=== PATIENT | male | born 1935 | race Caucasian/White ===

== ENCOUNTER 2017-01-23 10:17 | Emergency (ER) | payer MEDICARE ==
[2017-01-23 10:47] VITALS: BP 135/58
[2017-01-23] MEDS ORDERED: Fluorescein Sodium TOPICAL* 1 MG TEST OPHTHALMIC ONE (11:07)
--- NOTE | 2017-01-23 11:26 | UC ---
Eye Complaint HPI - HPI Summary HPI Summary: 81 yo male with right eye tearing and itching x <18 hours 2-3/10 eye discomfort (feels irritated) no purulent d/c no photophobia hx of a corneal ulcer - History of Current Complaint Chief Complaint: UCEye Stated Complaint: EYE COMPLAINT Time Seen by Provider: 01/23/17 11:03 Onset/Duration: Gradual Onset, Lasting Hours Timing: Constant Severity Initially: Mild Severity Currently: Mild Pain Intensity: 2 Pain Scale Used: 0-10 Numeric Alleviating Factor(s): Nothing Associated Signs And Symptoms: Positive: Drainage (Clear) - Allergies/Home Medications Allergies/Adverse Reactions: Allergies Allergy/AdvReac Type Severity Reaction Status Date / Time horses Allergy itchy eyes Uncoded 11/16/13 16:19 PMH/Surg Hx/FS Hx/Imm Hx Endocrine History: Diabetes, Dyslipidemia Cardiovascular History: Hypertension - Surgical History Surgical History: Yes Surgery Procedure, Year, and Place: 2 BOWEL RESECTIONS R/T LYMPHOMA, CARDIAC BYPASS, bilat cataracts - Family History Known Family History: Positive: Cardiac Disease, Hypertension - Social History Alcohol Use: None Substance Use Type: None Smoking Status (MU): Never Smoked Tobacco Review of Systems Constitutional: Negative Skin: Negative Eyes: Drainage, Eye Redness ENT: Negative Respiratory: Negative Cardiovascular: Negative Gastrointestinal: Negative Genitourinary: Negative Motor: Negative Neurovascular: Negative Musculoskeletal: Negative Neurological: Negative Psychological: Negative Is Patient Immunocompromised?: No All Other Systems Reviewed And Are Negative: Yes Physical Exam Triage Information Reviewed: Yes Appearance: Well-Appearing, No Pain Distress, Well-Nourished Vital Signs: Initial Vital Signs Temp 97.9 F 01/23/17 10:41 Pulse 79 01/23/17 10:41 Resp 18 01/23/17 10:41 BP 135/58 01/23/17 10:41 Pulse Ox 99 01/23/17 10:41 Eyes: Positive: Conjunctiva Inflamed - R also with mild lid edema and erythema, Other: - florescein staining (-) ENT: Positive: Hearing grossly normal. Negative: Nasal congestion, Nasal drainage, Muffled voice, Hoarse voice, Sinus tenderness Neck: Positive: Supple Respiratory: Positive: Lungs clear, Normal breath sounds, No respiratory distress, No accessory muscle use Cardiovascular: Positive: RRR, No Murmur Musculoskeletal: Positive: ROM Intact, No Edema Neurological: Positive: Alert Psychological Exam: Normal Skin Exam: Normal Eye Complaint Course/Dx - Differential Dx/Diagnosis Provider Diagnoses: conjunctivitis (R) Discharge - Discharge Plan Condition: Stable Disposition: HOME Prescriptions: Polymyx/Trimethoprim OPTH* [Polytrim OPHTH*] 1 - 2 drop RIGHT EYE QID #1 btl Patient Education Materials: Conjunctivitis (ED) Referrals: Srini Tinajero MD [Medical Doctor] - 2 Days (if not better) Additional Instructions: I suggest you also try ZADITOR eye drops (over the counter) recheck for new or worsening symptoms or if not improving in a few days
== END 2017-01-23 11:25 | disposition home or self-care (01) ==
LOC: UCEAST 10:17
DX: H10.9 Unspecified conjunctivitis (principal)
CPT/HCPCS: 99212; A9270-GY; G0463

== ENCOUNTER 2022-06-24 06:29 | Observation (INO) ==
[2022-06-24 07:28] LABS: ABS Eosinophils 0.1 10^3/uL (0.0-0.5); ABS Lymphocytes 1.2 10^3/uL (1.0-4.8); ABS Monocytes 0.3 10^3/uL (0.0-1.1); ABS Neutrophils 2.3 10^3/uL (1.5-7.6); Eosinophil % 3.3 %; Hematocrit 39.3 % (38-53); Hemoglobin 13.4 g/dL (13.2-16.3); Lymphocyte % 30.3 %; Mean Corpuscular Hemoglobin 31.4 pg (27-33); Mean Corpuscular Hgb Conc 34.1 g/dL (31-36); Mean Corpuscular Volume 92.1 fL (80-97); Mean Platelet Volume 7.9 fL (7.5-11.2); Platelet Count 109 10^3/uL (150-450); Red Blood Count 4.26 10^6/uL (4.06-5.63); Red Cell Distribution Width 13.3 % (12-17)
[2022-06-24 07:37] LABS: Activated Partial Thrombo Time 37.6 seconds (26.0-38.0); INR 1.09 (0.88-1.18)
[2022-06-24] MEDS ORDERED: ceFAZolin 2 GM in NS PREMIX 2 GM/100 ML BAG IVPB ONE (08:01)
[2022-06-24] MEDS ORDERED: Midazolam 10 mg/10 ml VIAL 1 mg/ml 10 ml VIAL (10 mg) IV SLOW PU ONE (08:02)
[2022-06-24] MEDS ORDERED: fentaNYL 100 mcg/2 ml 50 MCG/ML VIAL IV SLOW PU ONE (08:02)
[2022-06-24] MEDS ORDERED: Midazolam 5 mg/5 ml VIAL 1 mg/ml 5 ml VIAL (5 mg) ONE (08:14)
[2022-06-24] MEDS ORDERED: fentaNYL 100 mcg/2 ml 50 MCG/ML VIAL ONE (08:14)
[2022-06-24] MEDS ORDERED: Lidocaine 1% VIAL 10 MG/ML VIAL 30 ML ONE (08:14)
[2022-06-24] MEDS ORDERED: ceFAZolin 2 GM/50 ML BAG IV ONE (08:15)
[2022-06-24 08:23] LABS: Calcium 8.9 mg/dL (8.6-10.3); Creatinine, Serum 0.94 mg/dL (0.67-1.17); Potassium 4.1 mmol/L (3.5-5.0); eGFR CKD-EPI 78.5 (>60)
[2022-06-24] MEDS ORDERED: Iohexol 300 (CONTRAST) 10 ML SDV ONE (08:23)
[2022-06-24] MEDS: NS 0.9% 1000 ml BAG 1,000 ML IV SCH ×2 (08:45→22:51)
[2022-06-24] MEDS ORDERED: ceFAZolin VIAL 1 GM in NS 0.9% 50 ML 50 ML IVPB SCH (10:00)
[2022-06-24] MEDS ORDERED: NF: Liraglutide (NF) 18 MG/3 ML SUBCUT SCH (10:00)
[2022-06-24] MEDS ORDERED: Empagliflozin 25 MG TAB PO SCH (10:00)
[2022-06-24] MEDS ORDERED: ceFAZolin 1 GM Q8H (ADVAN) IVPB SCH (16:00)
[2022-06-25] MEDS ORDERED: ceFAZolin 1 GM Q8H (ADVAN) IVPB SCH (03:30)
[2022-06-25] MEDS ORDERED: Cholestyramine Resin 4 GM POWDER PO SCH (09:00)
[2022-06-25 10:25] VITALS: BP 136/55
== END 2022-06-25 11:30 | disposition home or self-care (01) ==
LOC: MEDTELE 06:29 → CHICATH 06:29
PROVIDERS: ADMIT Specialist; ATTEND Specialist

== ENCOUNTER 2023-11-17 10:11 | Inpatient (IN) ==
[2023-11-17 11:42] LABS: Rapid Strep Molecular Negative (Negative)
[2023-11-17 12:10] LABS: Hematocrit 37.9 % (38-53); Mean Corpuscular Hemoglobin 32.2 pg (27-33); Mean Corpuscular Hgb Conc 34.4 g/dL (31-36); Mean Corpuscular Volume 93.5 fL (80-97); Red Blood Count 4.05 10^6/uL (4.06-5.63); Red Cell Distribution Width 14.3 % (12-17); White Blood Count 4.5 10^3/uL (3.6-10.2)
[2023-11-17 12:15] LABS: C Reactive Protein 51.58 mg/L (<8.01); Calcium 8.6 mg/dL (8.6-10.3); Creatinine, Serum 0.66 mg/dL (0.67-1.17); Potassium 3.3 mmol/L (3.5-5.0); eGFR CKD-EPI 90.2 (>60)
[2023-11-17] MEDS: Iodixanol (CONTRAST) 320 MG/ML 100 ML SDV IV ONE (12:45)
[2023-11-17 13:19] LABS: ABS Eosinophils 0.1 10^3/uL (0.0-0.5); ABS Monocytes 0.3 10^3/uL (0.0-1.1); ABS Neutrophils 3.1 10^3/uL (1.5-7.6); ABS Nucleated RBC 0.01 10^3/ul; Eosinophil % 2.4 %; Lymphocyte % 21.4 %; Mean Platelet Volume 8.1 fL (7.5-11.2); Nucleated Red Blood Cells % 0.2 %/100WBC (0.0-0.8); Platelet Count 96 10^3/uL (150-450)
[2023-11-17] MEDS: cefTRIAXone 1 gm/50 mL D5W 1 GM/50 ML BAG IV ONE (14:47)
[2023-11-17] MEDS ORDERED: Vancomycin 1,750 MG in NS 0.9% 250 ml 250 ML IVPB ONE (15:00)
[2023-11-17] MEDS: Vancomycin 1,750 MG in NS 0.9% 500 ml BAG 500 ML IVPB ONE (16:18)
[2023-11-17] MEDS ORDERED: hydrALAZINE 20 mg/ml 1 ML Vial IV IV SLOW PU PRN (17:51)
[2023-11-17] MEDS ORDERED: Dextrose 50% Syringe 50 ml 25 GM/50 ML SYRINGE IV PUSH PRN (17:51)
[2023-11-17] MEDS ORDERED: Zosyn per Pharmacy NOTE FOLLOW UP SCH (18:00)
[2023-11-17] MEDS ORDERED: Vancomycin per Pharmacy 1 EA NOTE FOLLOW UP SCH (18:00)
[2023-11-17] MEDS: Zosyn 3.375 GM IV - ED ONCE IV ONE (20:05)
[2023-11-17] MEDS: Insulin GLARGINE 100 un/ml 10 ml VIAL SUBCUT SCH (20:05)
[2023-11-18] MEDS: ZOSYN 3.375 GM Q8H per EXTENDED INFUSION IV SCH ×2 (00:57→11:26)
[2023-11-18 06:26] LABS: ABS Eosinophils 0.2 10^3/uL (0.0-0.5); ABS Lymphocytes 1.2 10^3/uL (1.0-4.8); ABS Monocytes 0.4 10^3/uL (0.0-1.1); ABS Neutrophils 2.8 10^3/uL (1.5-7.6); Eosinophil % 4.7 %; Hematocrit 37.5 % (38-53); Hemoglobin 12.7 g/dL (13.2-16.3); Lymphocyte % 25.7 %; Mean Corpuscular Hemoglobin 31.5 pg (27-33); Mean Corpuscular Hgb Conc 33.9 g/dL (31-36); Mean Platelet Volume 8.2 fL (7.5-11.2); Platelet Count 127 10^3/uL (150-450); Red Blood Count 4.03 10^6/uL (4.06-5.63); Red Cell Distribution Width 14.6 % (12-17); White Blood Count 4.6 10^3/uL (3.6-10.2)
[2023-11-18] MEDS: Vancomycin 1,250 MG in NS 0.9% 250 ml 250 ML IVPB SCH ×2 (07:00→18:06)
[2023-11-18 07:28] LABS: Calcium 8.1 mg/dL (8.6-10.3); Creatinine, Serum 0.66 mg/dL (0.67-1.17); Potassium 3.2 mmol/L (3.5-5.0); eGFR CKD-EPI 90.2 (>60)
[2023-11-18 07:57] LABS: Magnesium 1.8 mg/dL (1.9-2.7)
[2023-11-18 09:34] LABS: Albumin 3.6 g/dL (3.2-5.2); Albumin/Globulin Ratio 1.6 (1-3); Direct Bilirubin 0.1 mg/dL (0.03-0.18); Globulin 2.2 g/dL (2-4); Indirect Bilirubin 0.9 mg/dL (0.3-1.0); Total Protein 5.8 g/dL (6.4-8.9)
[2023-11-18 10:16] LABS: Hepatitis B Surface Antigen Nonreactive (Nonreactive)
[2023-11-18 10:21] LABS: Hepatitis B Core IgM Nonreactive (Nonreactive)
[2023-11-18 10:33] LABS: Hepatitis B Surface Ab Not Immune (Immune); Hepatitis C Antibody Negative (Negative)
[2023-11-18] MEDS: Aspirin EC 81 mg TAB.EC (enteric coated) PO SCH (10:36)
[2023-11-18] MEDS: Potassium Chlor 20 meq TAB.ER PO ONE (10:36)
[2023-11-18] MEDS: NF: Vibegron 75 MG TAB (NF) PO SCH (11:38)
[2023-11-18] MEDS: Magnesium Sulfate 2 gm BAG 2 GM/50 ML BAG IVPB ONE (15:20)
[2023-11-19 05:47] LABS: ABS Eosinophils 0.2 10^3/uL (0.0-0.5); ABS Lymphocytes 1.3 10^3/uL (1.0-4.8); ABS Monocytes 0.4 10^3/uL (0.0-1.1); ABS Neutrophils 2.3 10^3/uL (1.5-7.6); ABS Nucleated RBC 0.01 10^3/ul; Eosinophil % 5.2 %; Hematocrit 36.7 % (38-53); Hemoglobin 12.7 g/dL (13.2-16.3); Lymphocyte % 30.7 %; Mean Corpuscular Hemoglobin 32.2 pg (27-33); Mean Corpuscular Hgb Conc 34.7 g/dL (31-36); Mean Corpuscular Volume 92.7 fL (80-97); Mean Platelet Volume 7.8 fL (7.5-11.2); Nucleated Red Blood Cells % 0.2 %/100WBC (0.0-0.8); Platelet Count 107 10^3/uL (150-450); Red Blood Count 3.96 10^6/uL (4.06-5.63); Red Cell Distribution Width 14.1 % (12-17); White Blood Count 4.1 10^3/uL (3.6-10.2)
[2023-11-19 06:04] LABS: Calcium 8.4 mg/dL (8.6-10.3); Creatinine, Serum 0.57 mg/dL (0.67-1.17); Potassium 3.3 mmol/L (3.5-5.0); Vancomycin Trough 8.7 mcg/mL; eGFR CKD-EPI 94.3 (>60)
[2023-11-19] MEDS: Vancomycin Trough Check NOTE FOLLOW UP ONE (08:33)
[2023-11-19] MEDS: Vancomycin 1000 MG in NS 0.9% 250 ML IVPB SCH (15:07)
[2023-11-19] MEDS: Potassium Chlor 20 meq TAB.ER PO SCH (17:04)
[2023-11-19] MEDS: Amoxicillin/Clavul 875/125 TAB (Augmentin 875 tab) PO SCH (20:43)
[2023-11-20 06:26] LABS: ABS Eosinophils 0.2 10^3/uL (0.0-0.5); ABS Lymphocytes 1.4 10^3/uL (1.0-4.8); ABS Monocytes 0.4 10^3/uL (0.0-1.1); ABS Neutrophils 2.6 10^3/uL (1.5-7.6); Eosinophil % 4.5 %; Hemoglobin 13.4 g/dL (13.2-16.3); Lymphocyte % 30.7 %; Mean Corpuscular Hemoglobin 32.4 pg (27-33); Mean Corpuscular Hgb Conc 35.1 g/dL (31-36); Mean Corpuscular Volume 92.2 fL (80-97); Mean Platelet Volume 7.7 fL (7.5-11.2); Platelet Count 112 10^3/uL (150-450); Red Blood Count 4.13 10^6/uL (4.06-5.63); Red Cell Distribution Width 14.6 % (12-17); White Blood Count 4.7 10^3/uL (3.6-10.2)
[2023-11-20 06:40] LABS: Calcium 8.7 mg/dL (8.6-10.3); Creatinine, Serum 0.58 mg/dL (0.67-1.17); Potassium 3.5 mmol/L (3.5-5.0); eGFR CKD-EPI 93.8 (>60)
[2023-11-20 13:32] VITALS: BP 146/83
[2023-11-21] MEDS ORDERED: Vancomycin Trough Check NOTE FOLLOW UP ONE (06:00)
== END 2023-11-20 13:50 | disposition home or self-care (01) | DRG 603 ==
LOC: EDHOLD 10:11 → ED 10:11 → MEDTELE 11-18 07:47
PROVIDERS: ADMIT Internal Medicine; ATTEND Internal Medicine